=== PATIENT | female | born 1940 | race Caucasian/White ===

== ENCOUNTER 2021-12-23 09:01 | Inpatient (IN) ==
[2021-12-23] MEDS ORDERED: SODIUM CHLORIDE 0.9% 1,000 ML IV STA (09:45)
[2021-12-23] MEDS ORDERED: ONDANSETRON 4 MG/2 ML VIAL IV ONE (09:45)
[2021-12-23] MEDS ORDERED: MORPHINE 2 MG/1 ML SYRINGE IV ONE (09:45)
[2021-12-23 09:54] LABS: Basophils # 0.1 10*3/uL (0.0-0.2); Basophils % 0.5 % (0.0-0.8); Eosinophils # 0.1 10*3/uL (0.0-0.87); Hematocrit 42.3 VOL% (35.7-47.0); Hemoglobin 14.2 GM/DL (12.0-16.0); Immature Granulocytes % 0.3 %; Immature Granulocytes Absolute 0.03 #; Lymphocytes # 2.3 10*3/uL (1.4-4.0); Lymphocytes % 22.9 % (21.3-54.2); Mean Corpuscular HGB Conc 33.6 GM/DL (32-36); Mean Corpuscular Volume 89.4 FL (87-102); Mean Platelet Volume 10.5 FL (9.6-12.0); Monocytes # 0.6 10*3/uL (0.11-0.8); Monocytes % 5.8 % (1.7-12.7); Neutrophils % 69.5 % (38.7-73.9); Platelet Count 221 T/CUMM (130-400); Red Blood Count 4.73 MC/CUMM (3.8-5.5); Red Cell Distribution Width 13.9 % (9.3-17.3); White Blood Count 9.9 T/CUMM (4-12)
[2021-12-23 10:13] LABS: Albumin 3.8 G/DL (3.4-5.0); Bilirubin,Total 1.3 MG/DL (0.20-1.00); Calcium 9.3 MG/DL (8.5-10.1); Osmolality,Calculated 286.8 MOS/KG (273-304); Potassium 3.8 MMOL/L (3.5-5.1); Total Protein 7.1 G/DL (6.4-8.2)
[2021-12-23 10:17] LABS: Mucus,Urine Moderate /LPF (Occasional); RBC,Urine 13763 /HPF (0-4); Squamous Epithelial Cell,Urine Occasional /HPF (0-10); Urine Appearance Turbid (Clear); Urine Color Red (Yellow); Urine pH 6.5 (4.5-8.0)
[2021-12-23 10:18] LABS: Bilirubin,Urine Large mg/dL (Negative); Blood, Urine Large mg/dL (Negative); Glucose,Urine (UA) 100 mg/dL (Negative); Ketones,Urine 15 mg/dL (Negative); Nitrite,Urine Positive (Negative); Protein,Urine >=300 mg/dL (Negative)
[2021-12-23] MEDS ORDERED: HYDROmorphone 1 MG/1 ML SYRINGE IV STA ×2 (10:47→11:02)
[2021-12-23] MEDS ORDERED: HYDROmorphone 1 MG/1 ML SYRINGE ONE (10:48)
[2021-12-23] MEDS ORDERED: cefTRIAXone 1,000 MG in SODIUM CHLORIDE 0.9% 100 ML IV STA (11:02)
[2021-12-23] MEDS ORDERED: diphenhydrAMINE 50 MG/1 ML VIAL IV STA (11:30)
[2021-12-23] MEDS ORDERED: ONDANSETRON 4 MG/2 ML VIAL IV PRN (11:40)
[2021-12-23] MEDS ORDERED: GLUCAGON 1 MG VIAL IM PRN (11:40)
[2021-12-23] MEDS ORDERED: DEXTROSE 10% 250 ML BAG IV PRN (11:40)
[2021-12-23] MEDS ORDERED: KETOROLAC 30 MG/1 ML VIAL IV ONE (11:42)
[2021-12-23] MEDS ORDERED: HYDROmorphone 1 MG/1 ML SYRINGE IV PRN (11:45)
[2021-12-23] MEDS: PANTOPRAZOLE 40 MG TABLET PO SCH (14:00)
[2021-12-23] MEDS: SODIUM CHLORIDE 0.9% 1,000 ML IV SCH (14:00)
[2021-12-23] MEDS: SODIUM CHLORIDE 0.9% 75 ML IV SCH ×4 (14:09→14:41)
[2021-12-23 14:15] LABS: PT Patient Result 11.4 SECS (10.1-12.1)
[2021-12-23] MEDS: ENOXAPARIN 40 MG/0.4 ML SYRINGE SUBCUT SCH (21:12)
[2021-12-24] MEDS: SODIUM CHLORIDE 0.9% 1,000 ML IV SCH ×2 (03:21→16:40)
[2021-12-24 04:52] LABS: Basophils # 0.1 10*3/uL (0.0-0.2); Basophils % 0.6 % (0.0-0.8); Eosinophils # 0.1 10*3/uL (0.0-0.87); Eosinophils % 0.6 % (0.00-10.9); Hematocrit 36.5 VOL% (35.7-47.0); Immature Granulocytes % 0.5 %; Immature Granulocytes Absolute 0.04 #; Lymphocytes # 2.1 10*3/uL (1.4-4.0); Lymphocytes % 26.9 % (21.3-54.2); Mean Corpuscular HGB Conc 32.3 GM/DL (32-36); Mean Corpuscular Volume 92.4 FL (87-102); Mean Platelet Volume 11.2 FL (9.6-12.0); Monocytes # 0.6 10*3/uL (0.11-0.8); Monocytes % 7.6 % (1.7-12.7); Neutrophils % 63.8 % (38.7-73.9); Red Blood Count 3.95 MC/CUMM (3.8-5.5); Red Cell Distribution Width 13.9 % (9.3-17.3); White Blood Count 7.9 T/CUMM (4-12)
[2021-12-24 04:54] LABS: Hemoglobin 11.8 GM/DL (12.0-16.0); Platelet Count 171 T/CUMM (130-400)
[2021-12-24 05:19] LABS: Albumin 2.8 G/DL (3.4-5.0); Bilirubin,Total 1.5 MG/DL (0.20-1.00); Calcium 8.4 MG/DL (8.5-10.1); Osmolality,Calculated 287.8 MOS/KG (273-304); Potassium 3.4 MMOL/L (3.5-5.1); Total Protein 5.3 G/DL (6.4-8.2)
[2021-12-24] MEDS ORDERED: POTASSIUM CHLORIDE 20 MEQ TABLET PO ONE (08:08)
[2021-12-24] MEDS: PANTOPRAZOLE 40 MG TABLET PO SCH (08:36)
[2021-12-24] MEDS: LEVOFLOXACIN INJ 500 MG/100 ML PREMIX IV SCH (08:36)
[2021-12-24] MEDS ORDERED: cefTRIAXone 1,000 MG in SODIUM CHLORIDE 0.9% 100 ML IV SCH (09:00)
[2021-12-24 09:11] LABS: Hepatitis B Core IgM Quant 0.14 Index; Hepatitis B Surface Ag Result Non-Reactive (NonReactive); Hepatitis C Virus Ab Quant 0.05 Index; Hepatitis C Virus Ab Result Non-Reactive (NonReactive)
[2021-12-24] MEDS ORDERED: ALBUTEROL 2.5 MG/3 ML NEB RESP TX PRN (11:12)
[2021-12-24 11:54] LABS: % Iron Saturation 14.8 % (18-50); Ferritin 208.4 ng/mL (8-252)
[2021-12-24 19:41] LABS: Folate 20.88 NG/ML (5.38-24.0)
[2021-12-24] MEDS: ENOXAPARIN 40 MG/0.4 ML SYRINGE SUBCUT SCH (21:22)
[2021-12-24] MEDS: BUDESONIDE/FORMOTEROL 80-4.5 INHALER 6.9 GM INH SCH (21:24)
[2021-12-25 05:21] LABS: Basophils % 0.5 % (0.0-0.8); Eosinophils # 0.1 10*3/uL (0.0-0.87); Eosinophils % 1.8 % (0.00-10.9); Hematocrit 35.4 VOL% (35.7-47.0); Hemoglobin 11.2 GM/DL (12.0-16.0); Immature Granulocytes % 1.6 %; Lymphocytes # 1.9 10*3/uL (1.4-4.0); Lymphocytes % 29.9 % (21.3-54.2); Mean Corpuscular HGB Conc 31.6 GM/DL (32-36); Mean Corpuscular Volume 93.2 FL (87-102); Mean Platelet Volume 10.8 FL (9.6-12.0); Monocytes # 0.4 10*3/uL (0.11-0.8); Monocytes % 6.9 % (1.7-12.7); Neutrophils % 59.3 % (38.7-73.9); Platelet Count 148 T/CUMM (130-400); Red Cell Distribution Width 13.9 % (9.3-17.3); White Blood Count 6.3 T/CUMM (4-12)
[2021-12-25 05:41] LABS: Albumin 2.6 G/DL (3.4-5.0); Bilirubin,Total 0.9 MG/DL (0.20-1.00); Calcium 8.3 MG/DL (8.5-10.1); Osmolality,Calculated 289.6 MOS/KG (273-304); Potassium 3.8 MMOL/L (3.5-5.1); Total Protein 5.4 G/DL (6.4-8.2)
[2021-12-25] MEDS: SODIUM CHLORIDE 0.9% 1,000 ML IV SCH (05:55)
[2021-12-25] MEDS: LEVOFLOXACIN INJ 500 MG/100 ML PREMIX IV SCH (08:16)
[2021-12-25] MEDS: PANTOPRAZOLE 40 MG TABLET PO SCH (08:16)
[2021-12-25] MEDS: BUDESONIDE/FORMOTEROL 80-4.5 INHALER 6.9 GM INH SCH (08:17)
[2021-12-25] MEDS ORDERED: CLOPIDOGREL 75 MG TABLET PO SCH (09:00)
[2021-12-25] MEDS ORDERED: ASPIRIN EC 81 MG TABLET PO SCH (09:00)
[2021-12-25 12:13] VITALS: BP 150/70
== END 2021-12-25 13:48 | disposition home health service (06) | DRG 690 ==
LOC: N.EDINP 09:01 → N.ED 09:01 → SUATTDRO 11:40 → N.2W 12:59 → SUATTDRO 12-24 08:08 → N.3E 12-24 10:57
PROVIDERS: ADMIT Family Medicine; ATTEND Emergency Medicine

== ENCOUNTER 2022-02-28 13:15 | Observation (INO) ==
[2022-02-28] MEDS ORDERED: NALOXONE 0.4 MG/ML VIAL ONE (13:35)
[2022-02-28] MEDS ORDERED: SODIUM CHLORIDE 0.9% 500 ML IV STA (13:39)
[2022-02-28] MEDS ORDERED: NALOXONE 0.4 MG/ML VIAL IV STA (13:50)
[2022-02-28 13:52] LABS: Basophils # 0.1 10*3/uL (0.0-0.2); Basophils % 0.7 % (0.0-0.8); Eosinophils # 0.2 10*3/uL (0.0-0.87); Eosinophils % 2.6 % (0.00-10.9); Hematocrit 43.3 VOL% (35.7-47.0); Hemoglobin 14.2 GM/DL (12.0-16.0); Immature Granulocytes % 0.4 %; Immature Granulocytes Absolute 0.03 #; Lymphocytes # 2.1 10*3/uL (1.4-4.0); Lymphocytes % 28.9 % (21.3-54.2); Mean Corpuscular HGB Conc 32.8 GM/DL (32-36); Mean Corpuscular Volume 92.3 FL (87-102); Mean Platelet Volume 9.9 FL (9.6-12.0); Monocytes # 0.3 10*3/uL (0.11-0.8); Monocytes % 4.4 % (1.7-12.7); Platelet Count 190 T/CUMM (130-400); Red Blood Count 4.69 MC/CUMM (3.8-5.5); Red Cell Distribution Width 13.5 % (9.3-17.3); White Blood Count 7.2 T/CUMM (4-12)
[2022-02-28 14:03] LABS: PT Patient Result 11.1 SECS (10.1-12.1); Partial Thromboplastin Time 27.9 SECS (23.7-32.9)
[2022-02-28 14:13] LABS: Albumin 3.6 G/DL (3.4-5.0); Bilirubin,Total 0.8 MG/DL (0.20-1.00); Calcium 8.7 MG/DL (8.5-10.1); Osmolality,Calculated 290.8 MOS/KG (273-304); Potassium 3.8 MMOL/L (3.5-5.1); Total Protein 6.8 G/DL (6.4-8.2)
[2022-02-28 15:13] LABS: Bilirubin,Urine Negative (Negative); Blood, Urine Moderate mg/dL (Negative); Glucose,Urine (UA) Negative (Negative); Ketones,Urine Negative (Negative); Mucus,Urine Occasional /LPF (Occasional); Nitrite,Urine Negative (Negative); Protein,Urine Negative (Negative); RBC,Urine 33 /HPF (0-4); Squamous Epithelial Cell,Urine Occasional /HPF (0-10); Urine Appearance Slightly Hazy (Clear); Urine Color Yellow (Yellow); Urine Specific Gravity 1.015 (1.001-1.035)
[2022-02-28 15:18] LABS: Barbiturates Screen,Urine Negative (Negative); Benzodiazepines Screen,Urine Negative (Negative); Cannabinoid Screen,Urine Negative (Negative); Opiate Screen,Urine Negative (Negative); Phencyclidine Screen,Urine Negative (Negative)
[2022-02-28] MEDS ORDERED: cefTRIAXone 1,000 MG in SODIUM CHLORIDE 0.9% 100 ML IV STA (16:13)
[2022-02-28] MEDS ORDERED: hydrALAZINE 20 MG/1 ML VIAL IV PRN (16:14)
[2022-02-28] MEDS ORDERED: NICOTINE 21 MG/24 HR PATCH TRANSDERM PRN (16:14)
[2022-02-28] MEDS ORDERED: ONDANSETRON 4 MG/2 ML VIAL IV PRN (16:14)
[2022-02-28] MEDS ORDERED: ACETAMINOPHEN 325 MG TABLET PO PRN (16:14)
[2022-02-28] MEDS ORDERED: guaiFENesin/DM ER 600-30 MG TABLET PO PRN (16:14)
[2022-02-28] MEDS ORDERED: diphenhydrAMINE CAP 25 MG CAPSULE PO PRN (16:14)
[2022-03-01 05:55] LABS: Basophils # 0.1 10*3/uL (0.0-0.2); Basophils % 0.9 % (0.0-0.8); Eosinophils # 0.2 10*3/uL (0.0-0.87); Eosinophils % 3.5 % (0.00-10.9); Hematocrit 43.4 VOL% (35.7-47.0); Hemoglobin 14.3 GM/DL (12.0-16.0); Immature Granulocytes % 0.2 %; Immature Granulocytes Absolute 0.01 #; Lymphocytes # 1.9 10*3/uL (1.4-4.0); Lymphocytes % 33.5 % (21.3-54.2); Mean Corpuscular HGB Conc 32.9 GM/DL (32-36); Mean Corpuscular Volume 92.7 FL (87-102); Mean Platelet Volume 11.1 FL (9.6-12.0); Monocytes # 0.3 10*3/uL (0.11-0.8); Monocytes % 4.8 % (1.7-12.7); Neutrophils % 57.1 % (38.7-73.9); Platelet Count 166 T/CUMM (130-400); Red Blood Count 4.68 MC/CUMM (3.8-5.5); Red Cell Distribution Width 13.5 % (9.3-17.3); White Blood Count 5.7 T/CUMM (4-12)
[2022-03-01 06:18] LABS: Calcium 9.1 MG/DL (8.5-10.1); Osmolality,Calculated 288.7 MOS/KG (273-304); Potassium 3.9 MMOL/L (3.5-5.1)
[2022-03-01 06:34] LABS: Platelet Estimate Normal
[2022-03-01 06:35] LABS: Anisocytosis Slight
[2022-03-01] MEDS ORDERED: amLODIPine 5 MG TABLET PO SCH (09:00)
[2022-03-01] MEDS ORDERED: PANTOPRAZOLE 40 MG TABLET PO SCH (09:00)
[2022-03-01] MEDS ORDERED: ASPIRIN EC 81 MG TABLET PO SCH (09:00)
[2022-03-01] MEDS ORDERED: cefTRIAXone 1,000 MG in SODIUM CHLORIDE 0.9% 100 ML IV SCH (09:00)
[2022-03-01] MEDS ORDERED: BUDESONIDE/FORMOTEROL 80-4.5 INHALER 6.9 GM INH SCH (09:00)
[2022-03-01] MEDS ORDERED: ATORVASTATIN 20 MG TABLET PO SCH (09:00)
[2022-03-01] MEDS ORDERED: CLOPIDOGREL 75 MG TABLET PO SCH (09:00)
[2022-03-01] MEDS ORDERED: cefTRIAXone 1,000 MG in SODIUM CHLORIDE 0.9% 100 ML IV ONE (09:30)
[2022-03-01 11:38] VITALS: BP 128/54
[2022-03-01] MEDS ORDERED: CEFUROXIME 500 MG TABLET PO SCH (17:00)
[2022-03-01] MEDS ORDERED: MONTELUKAST 10 MG TABLET PO SCH (21:00)
== END 2022-03-01 12:30 | disposition home or self-care (01) ==
LOC: EDUNIT# → EDBD → N.EDINP 13:15 → N.ED 13:15 → SUATTDRO 16:14 → N.3E 17:05
PROVIDERS: ADMIT Internal Medicine; ATTEND Family Medicine